=== PATIENT | female | born 1955 | race Caucasian/White ===

== ENCOUNTER 2016-05-28 22:32 | Inpatient (IN) | payer BC ==
[~2016-05-28] VITALS: Ht 170.2 cm; Wt 86.5 kg
[~2016-05-28 22:32] MED LIST: LOSARTAN POTASS50 MG PO; METFORMIN HCL500 MG PO; MOTRIN600 MG PO; PANTOPRAZOLE SO40 MG PO; SIMVASTATIN20 MG PO; TROKENDI XR100 MG PO; ULTRACET1 TABLET PO; VALIUM2 MG PO; VENLAFAXINE HCL75 M3 PO
[2016-05-28 23:24] LABS: HEMATOCRIT 34.4 % (36.0-46.0); MCH 30.5 PG (29.0-34.0); MCHC 34.3 G/DL (30.0-36.0); MCV 88.9 FL (83-99); MEAN PLAT.VOLUME 9.4 uM^3 (9.5-12.4); PLATELET COUNT 226 K/uL (156-360); RBC DIS.WIDTH-SD 42.4 % (39-53); RED BLOOD COUNT 3.87 M/uL (3.80-5.20); WHITE BLOOD COUNT 4.4 K/uL (4.1-10.2)
[2016-05-28 23:35] LABS: CHLORIDE 109 mEq/L (99-109); POTASSIUM 3.7 mEq/L (3.7-5.4); SODIUM 141 mEq/L (136-147)
[2016-05-28 23:36] LABS: GLUCOSE 116 mg/dL (70-99)
[2016-05-28 23:38] LABS: ANION GAP 8 MEQ/L (2-14)
[2016-05-28 23:40] LABS: GFR ESTIMATE (CALCULATED) > 59 mL/min/
[2016-05-28 23:41] LABS: UREA NITROGEN (BUN) 9 mg/dL (9-23)
[2016-05-28 23:46] LABS: TROP-I INTERPRETATION NEGATIVE; TROPONIN-I < 0.01 ng/mL (0.0-0.30)
[2016-05-29] LABS: PROTHROMBIN TIME 10.3 (9.2-11.2); PTT 24.8 (25-32)
[2016-05-29] MEDS ORDERED: TROKENDI XR100 MG PO (01:20)
[2016-05-29] MEDS ORDERED: MODAFINIL200 MG PO (01:21)
[2016-05-29] MEDS ORDERED: CALCIUM 600 +1 EA12 PO (01:21)
[2016-05-29] MEDS ORDERED: LOSARTAN POTASS50 MG PO (01:22)
[2016-05-29] MEDS ORDERED: EFFEXOR XR150 MG PO (01:22)
[2016-05-29] MEDS ORDERED: FISH OIL300 MG PO (01:23)
[2016-05-29] MEDS ORDERED: GLUCOSAMINE &1 EAC1 PO (01:23)
[2016-05-29] MEDS ORDERED: FLAXSEED340 GM PO (01:23)
[2016-05-29] MEDS ORDERED: SIMVASTATIN20 MG PO (01:24)
[2016-05-29] MEDS ORDERED: METFORMIN HCL500 MG PO (01:24)
[2016-05-29] MEDS ORDERED: PROTONIX40 MG PO (01:24)
[2016-05-29] MEDS ORDERED: SELENIUM100 MICROG PO (01:25)
[2016-05-29] MEDS ORDERED: CENTRUM SILVER1 EAC3 PO (01:25)
[2016-05-29] MEDS ORDERED: MAGNESIUM250 MG PO (01:26)
[2016-05-29 10:44] VITALS: BP 152/71
[2016-05-29 12:00] VITALS: BP 128/65
[2016-05-29 13:53] LABS: TROP-I INTERPRETATION NEGATIVE; TROPONIN-I < 0.01 ng/mL (0.0-0.30)
[2016-05-29] MEDS ORDERED: ASPIRIN81 M2 PO (14:36)
[2016-05-29 16:00] VITALS: BP 124/62
== END 2016-05-29 18:05 | disposition home or self-care (01) | DRG 313 ==
LOC: EME 22:32 → 4SOUTH 23:41 → EDOF 23:41 → 4SOUTH 05-29 10:29
PROVIDERS: Emergency Medicine; Internal Medicine Cardiovascular Disease
DX: R07.89 Other chest pain (principal); R94.31 Abnormal electrocardiogram [ECG] [EKG]; R91.1 Solitary pulmonary nodule; I10 Essential (primary) hypertension; E78.5 Hyperlipidemia, unspecified; E11.9 Type 2 diabetes mellitus without complications; K21.9 Gastro-esophageal reflux disease without esophagitis; F32.9 Major depressive disorder, single episode, unspecified; Z82.49 Family history of ischemic heart disease and other diseases of the circulatory system
CPT/HCPCS: 71010; 71275; 80048; 84484; 85027; 85610; 85730; 93005; 99281; 99285